=== PATIENT | female | born 1980 | race Caucasian/White ===

== ENCOUNTER 2017-10-15 10:37 | Emergency (ER) | payer MEDICAID ==
[~2017-10-15] VITALS: Ht 162.6 cm; Wt 86.0 kg
[2017-10-15 13:17] VITALS: BP 161/86
[2017-10-15] MEDS ORDERED: GUAI10SY2 PO (13:22)
[2017-10-15] MEDS ORDERED: guaiFENesin/codeine phos 10ml UD oral syrup PO ONE (13:25)
== END 2017-10-15 13:54 | disposition home or self-care (01) ==
LOC: ER 10:38
DX: J06.9 Acute upper respiratory infection, unspecified (principal); F17.200 Nicotine dependence, unspecified, uncomplicated; Z88.0 Allergy status to penicillin
CPT/HCPCS: 99282; 99283